=== PATIENT | male | born 1990 | race Caucasian/White ===

== ENCOUNTER → 2017-09-03 08:30 | Outpatient (CLI) | payer BC, SELFPAY ==
--- NOTE | 2017-09-03 08:38 | PET_ITS ---
EXAMINATION: FDG PET CT INDICATIONS: A 26-year-old male with reported history of lymphoma presenting for restaging examination. COMPARISON EXAMINATION: Previous FDG PET study dated 05/07/17. TECHNIQUE: Following the intravenous administration of 13.4 mCi of F-18 deoxyglucose via the left hand, multiplanar image acquisitions of the neck, chest, abdomen and pelvis to level of mid thigh, obtained at one hour post radiopharmaceutical administration contemporaneously interpreted with the current CT of the neck, chest, abdomen and pelvis to level of mid thigh, dated 09/03/17 via coregistration and previous FDG PET study dated 05/07/17 reveal: SERUM GLUCOSE LEVEL: 108 mg/dl. HEIGHT: 69 inches. WEIGHT: 276 lbs. FINDINGS: 1. There is no quantitative scintigraphic evidence of abnormal increased glucose metabolism on meticulous inspection of whole body acquisitions to include all three axis reconstructions. 2. Normal physiologic distribution of the radiopharmaceutical is apparent in the hepatic and splenic parenchyma, both renal units, bladder and visualized intestinal tract. There is uniform distribution of the radiopharmaceutical concentration compared on the cerebellar hemispheres and cerebral cortex. Diffuse intestinal tract activity is noted throughout all four quadrants of the abdominal-pelvic retroperitoneum, mesentery consistent with normal physiologic distribution of the radiopharmaceutical. Homogeneous radiopharmaceutical concentration is apparent in the visualized appendicular-axial skeletal structures. The previously identified hypermetabolic foci noted in the left axilla, bilateral supraclavicular and anterior neck lymph node distributions, right-left cardiophrenic border, mediastinum and bilateral thoracic perihilum, abdominal retroperitoneum, left hemithorax pulmonary parenchyma are not apparent on the current examination. A persistent noncalcified parenchymal density remains evident in the left lower anterolateral hemithorax pulmonary parenchyma without evidence of increased glucose metabolism on the present examination. [id number] placement is noted. The prior defined morphologic-anatomic changes noted on CT of the neck, chest, abdomen and pelvis manifest on the FDG PET CT study dated 05/07/17 are essentially unchanged on the present examination. PET/PET/CT Tumor Base -Thigh Subs IMPRESSION: 1. NEGATIVE EXAMINATION. There is no definitive quantitative scintigraphic evidence of recurrent-viable neoplasm. 2. There is interim metabolic resolution of all prior defined hypermetabolic foci. 3. Homogeneous increased radiopharmaceutical concentration manifest in the visualized appendicular and axial skeletal structures is commensurate with the hematopoietic response to chemotherapeutic intervention. (Sugawara et al, Journal of Clinical Oncology 16:173, 1998). 4. Overall, compared to the prior FDG PET study dated 05/07/17, there is current absence of defined viable neoplastic disease with an interval quantitative complete metabolic response relating to all prior defined hypermetabolic foci. Electronic Signature Mo Steve D.O. Electronically Signed: Mo Steve DO at 23:35 EST Tel , Service support ,
== END ==
PROVIDERS: Family Provider Family Medicine; PCP Family Medicine; Visit Provider Internal Medicine Hematology & Oncology
DX: C81.90 Hodgkin lymphoma, unspecified, unspecified site (principal)
CPT/HCPCS: 78815; 99211; A9552; A4216; G0463